=== PATIENT | female | born 1990 | race Caucasian/White ===

== ENCOUNTER 2017-09-01 07:11 | Day surgery (SDC) | payer MEDICAID ==
[~2017-09-01 07:11] MED LIST: Lactated Ringers 1,000 ML IV SCH; Lidocaine 1%/Sod Bicarbonate in NS 8.4% 1 ML Syringe IV PRN; Sodium Chloride 0.9% 10 ML Syringe FLUSH PRN
[2017-09-01] MEDS ORDERED: Lidocaine 1% with EPINEPHrine 1:100,000 20 ML MDV ONE (07:16)
[2017-09-01] MEDS ORDERED: Sodium Chloride 0.9% 50 ML SDV ONE (07:16)
[2017-09-01] MEDS ORDERED: fentaNYL 100 MCG/2 ML SDV ONE (07:19)
[2017-09-01] MEDS ORDERED: Lidocaine 1% 4 ML ONE (07:19)
[2017-09-01] MEDS ORDERED: Propofol 200 MG/20 ML SDV ONE (07:19)
[2017-09-01] MEDS ORDERED: Ondansetron 4 MG/2 ML SDV ONE (07:19)
[2017-09-01] MEDS ORDERED: Dexamethasone 4 MG/ML 5 ML MDV ONE (07:19)
[2017-09-01] MEDS ORDERED: Ketorolac 30 MG/ML SDV ONE (07:19)
[2017-09-01] MEDS ORDERED: ceFAZolin 1 GM Vial ONE (07:19)
[2017-09-01] MEDS ORDERED: Lactated Ringers 1,000 ML ONE (07:19)
[2017-09-01] MEDS ORDERED: Midazolam 1 MG/ML 2 ML SDV ONE (07:20)
--- NOTE | 2017-09-01 07:39 | PCM.PREANE ---
Preanesthetic Assessment - Anesthesia/Transfusion/Family Hx Anesthesia History: Prior Anesthesia Without Reaction Family History of Anesthesia Reaction: No Transfusion History: No Prior Transfusion(s) Intubation History: Unknown - Review of Systems General: No Symptoms Pulmonary: No Symptoms (quit smoking 5 yrs ago.), Cough Cardiovascular: No Symptoms (history of irregular heart beat that has resolved.) Gastrointestinal: No Symptoms (Pt. c/o nervous stomach/diarrhea) Neurological: No Symptoms Other: Reports: Anxiety - Physical Assessment NPO Status Date: 08/31/17 NPO Status Time: 21:30 Pulse: 61 O2 Sat by Pulse Oximetry: 99 Respiratory Rate: 20 Blood Pressure: 111/75 Temperature: 36.7 C Height: 1.68 m Weight: 66.678 kg ASA Class: 2 Mental Status: Alert & Oriented x3 Airway Class: Mallampati = 2 Dentition: Reports: Normal Dentition, Caries Thyro-Mental Finger Breadths: 3 Mouth Opening Finger Breadths: 3 ROM/Head Extension: Full Lungs: Clear to Auscultation, Normal Respiratory Effort Cardiovascular: Regular Rate, Regular Rhythm, No Murmurs - Lab Values: Laboratory Last Values WBC 4.94 K/mm3 (3.98-10.04) 08/31/17 12:50 RBC 5.15 M/mm3 (3.98-5.22) 08/31/17 12:50 Hgb 14.8 gm/L (11.2-15.7) 08/31/17 12:50 Hct 44.6 % (34.1-44.9) 08/31/17 12:50 MCV 86.6 fl (79.4-94.8) 08/31/17 12:50 MCH 28.7 pg (25.6-32.2) 08/31/17 12:50 MCHC 33.2 g/dl (32.2-35.5) 08/31/17 12:50 RDW Std Deviation 40.8 fL (36.4-46.3) 08/31/17 12:50 Plt Count 241 K/mm3 (182-369) 08/31/17 12:50 MPV 10.5 fl (9.4-12.3) 08/31/17 12:50 Neut % (Auto) 58.9 % (34.0-71.1) 08/31/17 12:50 Lymph % (Auto) 29.6 % (19.3-51.7) 08/31/17 12:50 [place] % (Auto) 8.9 % (4.7-12.5) 08/31/17 12:50 Eos % (Auto) 2.4 (0.7-5.8) 08/31/17 12:50 Baso % (Auto) 0.2 % (0.1-1.2) 08/31/17 12:50 Neut # (Auto) 2.91 K/mm3 (1.56-6.13) 08/31/17 12:50 Lymph # (Auto) 1.46 K/mm3 (1.18-3.74) 08/31/17 12:50 [place] # (Auto) 0.44 K/mm3 (0.24-0.36) H 08/31/17 12:50 Eos # (Auto) 0.12 K/mm3 (0.04-0.36) 08/31/17 12:50 Baso # (Auto) 0.01 K/mm3 (0.01-0.08) 08/31/17 12:50 Urine HCG, Qual Negative (NEGATIVE) 08/31/17 12:50 Above labs reviewed and noted. - Allergies Allergies/Adverse Reactions: Allergies Allergy/AdvReac Type Severity Reaction Status Date / Time clindamycin Allergy Hives Verified 08/31/17 16:12 - Anesthesia Plan Pre-Op Medication Ordered: None - Acknowledgements Anesthesia Type Planned: General Anesthesia Pt an Appropriate Candidate for the Planned Anesthesia: Yes Alternatives and Risks of Anesthesia Discussed w Pt/Guardian: Yes Pt/Guardian Understands and Agrees with Anesthesia Plan: Yes PreAnesthesia Questionnaire - Past Health History Medical/Surgical History: Denies Medical/Surgical History HEENT History: Reports: Impaired Vision Cardiovascular History: Reports: Other (See Below) Other Cardiovascular History: irregular heart beat Respiratory History: Reports: None Gastrointestinal History: Reports: Chronic Diarrhea Other OB/BYN History: CINIII, HSIL Musculoskeletal History: Reports: Other (See Below) Other Musculoskeletal History: muscle twitching Neurological History: Reports: None Psychiatric History: Reports: None Endocrine/Metabolic History: Reports: None Hematologic History: Reports: None Immunologic History: Reports: None Oncologic (Cancer) History: Reports: None Dermatologic History: Reports: Other (See Below) Other Dermatologic History: facial surgery - Past Surgical History Head Surgeries/Procedures: Reports: None Other HEENT Surgeries/Procedures: face surgery Cardiovascular Surgical History: Reports: None Respiratory Surgical History: Reports: None GI Surgical History: Reports: None Female Surgical History: Reports: Cervical Conization, LEEP Endocrine Surgical History: Reports: None Neurological Surgical History: Reports: None Oncologic Surgical History: Reports: None - SUBSTANCE USE Smoking Status *Q: Current Some Day Smoker Tobacco Use Within Last Twelve Months: Snuff/Dip Second Hand Smoke Exposure: No Days Per Week of Alcohol Use: 1 Number of Drinks Per Day: 1 Total Drinks Per Week: 1 Recreational Drug Use History: No - HOME MEDS Home Medications: Home Meds Norethindrone [Jolivette] 1 tab PO DAILY 12/03/15 [History] Ibuprofen 600 mg PO Q4HR #30 tablet 12/04/15 [Rx] Dicyclomine HCl [Bentyl] 20 mg PO DAILY PRN 08/31/17 [History] - CURRENT (IN HOUSE) MEDS Current Meds: Current Medications Lactated Ringer's (Ringers, Lactated) 1,000 mls @ 125 mls/hr IV ASDIRECTED YOVANY Stop: 09/01/17 18:00 Lidocaine/Sodium Bicarbonate (Buffered Lidocaine 1% In Ns 8.4%) 0.25 ml IV ONETIME PRN PRN Reason: Prior to IV Start Stop: 09/01/17 18:00 Sodium Chloride (Saline Flush) 10 ml FLUSH ASDIRECTED PRN PRN Reason: Keep Vein Open Stop: 09/01/17 18:00 Discontinued Medications Cefazolin Sodium (Ancef) Confirm Administered Dose 2 gm .ROUTE .STK-MED ONE Stop: 09/01/17 07:20 Dexamethasone (Dexamethasone) Confirm Administered Dose 20 mg .ROUTE .STK-MED ONE Stop: 09/01/17 07:20 Fentanyl (Sublimaze) Confirm Administered Dose 100 mcg .ROUTE .STK-MED ONE Stop: 09/01/17 07:20 Lidocaine HCl (Xylocaine-Mpf 1%) Confirm Administered Dose 4 mls @ as directed .ROUTE .STK-MED ONE Stop: 09/01/17 07:20 Lactated Ringer's (Ringers, Lactated) Confirm Administered Dose 1,000 mls @ as directed .ROUTE .STK-MED ONE Stop: 09/01/17 07:20 Ketorolac Tromethamine (Toradol) Confirm Administered Dose 30 mg .ROUTE .STK- MED ONE Stop: 09/01/17 07:20 Lidocaine/Epinephrine (Xylocaine 1% With Epinephrine 1:100,000) Confirm Administered Dose 20 ml .ROUTE .STK-MED ONE Stop: 09/01/17 07:17 Midazolam HCl (Versed 1 Mg/Ml) Confirm Administered Dose 2 mg .ROUTE .STK-MED ONE Stop: 09/01/17 07:21 Ondansetron HCl (Zofran) Confirm Administered Dose 4 mg .ROUTE .STK-MED ONE Stop: 09/01/17 07:20 Propofol (Diprivan 20 Ml) Confirm Administered Dose 200 mg .ROUTE .STK-MED ONE Stop: 09/01/17 07:20 Sodium Chloride (Normal Saline) Confirm Administered Dose 50 ml .ROUTE .STK-MED ONE Stop: 09/01/17 07:17
[2017-09-01] MEDS ORDERED: Metoclopramide 10 MG/2 ML SDV IV PRN (08:10)
[2017-09-01] MEDS ORDERED: Ondansetron 4 MG/2 ML SDV IVPUSH PRN ×2 (08:10→08:45)
[2017-09-01] MEDS ORDERED: fentaNYL 100 MCG/2 ML SDV IVPUSH PRN (08:10)
[2017-09-01] MEDS ORDERED: Midazolam 1 MG/ML 2 ML SDV IVPUSH PRN (08:10)
--- NOTE | 2017-09-01 08:43 | PCM.POSTAN ---
POST ANESTHESIA ASSESSMENT - MENTAL STATUS Mental Status: Alert - VITAL SIGNS Pulse Rate: 64 SaO2: 100 Resp Rate: 16 Blood Pressure: 114/68 Temperature: 36.8 C - RESPIRATORY Respiratory Status: Respiratory Rate WNL, Airway Patent, O2 Saturation Stable, Supplemental Oxygen - CARDIOVASCULAR CV Status: Pulse Rate WNL, Blood Pressure Stable - GASTROINTESTINAL GI Status: No Symptoms - POST OP HYDRATION Hydration Status: Adequate & Stable
--- NOTE | 2017-09-01 09:33 | PCM48HPAN ---
Post Anesthesia Note - EVALUATION WITHIN 48HRS OF ANESTHETIC Vital Signs in Normal Range: Yes Patient Participated in Evaluation: Yes Respiratory Function Stable: Yes Airway Patent: Yes Cardiovascular Function Stable: Yes Hydration Status Stable: Yes Pain Control Satisfactory: Yes Nausea and Vomiting Control Satisfactory: Yes Mental Status Recovered: Yes
--- NOTE | 2017-09-01 09:52 | PCM.OPNOTE ---
- General Post-Op/Procedure Note Date of Surgery/Procedure: 09/01/17 Operative Procedure(s): Cold knife cone biopsy of the cervix Findings: Mild white epithelium at approximately 6 to 7 o'clock position. Patient has scarring secondary to previous LEEP. SCJ could not adequately visualized Pre Op Diagnosis: JUAN A-3, unsatisfactory colposcopy with squamocolumnar junction is not visualized adequately. Post-Op Diagnosis: Same Anesthesia Technique: General LMA Other Anesthesia Type: Lidocaine quarter percent with [id number] mL total Primary Surgeon: Eugenio Campbell Secondary Surgeon: Daxa Estrella Anesthesia Provider: Aneta Mendes Reason Dispatcher Chief Oil Was Necessary: Retraction, patient safety Role of Dispatcher Chief Oil: Retraction Fluid Replacement, Intraop: 900 EBL in mLs: 5 Complications: None Condition: Good Free Text/Narrative:: Intake & Output 08/31/17 09/01/17 09/01/17 22:59 06:59 14:59 Intake Total 250 Balance 250 Surgery duration: 29 minutes Procedure: The patient is taken to the operating room and placed in supine position on the operating table. She was administered Ancef 2 g IV preop for infection prophylaxis and had sequential compression stockings in place for DVT prophylaxis. General LMA anesthesia was administered. After anesthesia patient was placed in a dorsal lithotomy position and prepped externally for this procedure. Internal and external prep was done with Lugol solution. A weighted speculum was placed in the vagina. The cervix was visualized and a stay suture was placed at the 3:00 and 9 o'clock position using #1 Vicryl suture. Lugol's solution was applied and the ectocervix showed some minimal white epithelium at the 6:00 to 7 o'clock position.. The cervix was infiltrated with lidocaine quarter percent with epinephrine-10 mL total. Cold knife cone biopsy was then performed. The specimen was tagged at 12 o'clock position with a piece of suture. Endocervical curettage was done above the cone site and sent as specimen #2. The base the cone was then cauterized. Hemostasis was confirmed at the end of procedure. The stay suture tails were cut and the speculum was removed. Sponge instrument needle counts are correct at the end of the procedure. She was returned to supine position and awakened from general anesthesia. She tolerated the procedure well left the operating room in good condition.
[2017-09-01] MEDS ORDERED: Ketorolac 30 MG/ML SDV IVPUSH ONE (09:55)
[2017-09-01 10:20] VITALS: BP 115/71
== END 2017-09-01 10:25 | disposition home or self-care (01) ==
LOC: JD.SDS 07:11
PROVIDERS: ATTEND Obstetrics & Gynecology
DX: D06.0 Carcinoma in situ of endocervix (principal); N72 Inflammatory disease of cervix uteri; F41.9 Anxiety disorder, unspecified; I49.9 Cardiac arrhythmia, unspecified; F17.210 Nicotine dependence, cigarettes, uncomplicated; Z88.1 Allergy status to other antibiotic agents; Z79.899 Other long term (current) drug therapy; Z79.3 Long term (current) use of hormonal contraceptives
CPT/HCPCS: 36415; 57520; 81025; 85025; J0690; J1100; J1885; J2250; J2405; J3010; J7120; 00940; J2704

== ENCOUNTER 2018-07-14 14:23 | Emergency (ER) | payer MEDICAID, OTHER ==
[2018-07-14 14:34] VITALS: BP 125/81
--- NOTE | 2018-07-14 14:42 | EDM.PDOC ---
ED HPI GENERAL MEDICAL PROBLEM - General Chief Complaint: Lower Extremity Injury/Pain Stated Complaint: R ANKLE INJURY Time Seen by Provider: 07/14/18 14:32 Source of Information: Reports: Patient History Limitations: Reports: No Limitations - History of Present Illness INITIAL COMMENTS - FREE TEXT/NARRATIVE: 28-year-old female with a chief complaint of right ankle pain. She was trampled by a calf. Denies additional injury. Injury occurred about an hour ago. She complains of pain and swelling to the right ankle. Not able to bear weight due to pain. No numbness. No tingling. No weakness. No knee pain. No foot pain. Right Ankle Pain Score (Numeric/FACES): 8 - Related Data Allergies Allergy/AdvReac Type Severity Reaction Status Date / Time clindamycin Allergy Hives Verified 07/14/18 14:31 Home Meds: Home Meds Norethindrone [Jolivette] 1 tab PO DAILY 12/03/15 [History] Ibuprofen 800 mg PO TID PRN #40 tablet 07/14/18 [Rx] Past Medical History - Past Health History Medical/Surgical History: Denies Medical/Surgical History HEENT History: Reports: Impaired Vision Cardiovascular History: Reports: Other (See Below) Other Cardiovascular History: irregular heart beat Respiratory History: Reports: None Gastrointestinal History: Reports: Chronic Diarrhea Other CONTRACT MANAGEMENT SPECIALIST History: CINIII, HSIL Musculoskeletal History: Reports: Other (See Below) Other Musculoskeletal History: muscle twitching Neurological History: Reports: None Psychiatric History: Reports: None Endocrine/Metabolic History: Reports: None Hematologic History: Reports: None Immunologic History: Reports: None Oncologic (Cancer) History: Reports: None Dermatologic History: Reports: Other (See Below) Other Dermatologic History: facial surgery - Past Surgical History Head Surgeries/Procedures: Reports: None Other HEENT Surgeries/Procedures: face surgery Cardiovascular Surgical History: Reports: None Respiratory Surgical History: Reports: None GI Surgical History: Reports: None Female Surgical History: Reports: Cervical Conization, LEEP Endocrine Surgical History: Reports: None Neurological Surgical History: Reports: None Oncologic Surgical History: Reports: None Social & Family History - Tobacco Use Smoking Status *Q: Never Smoker - Caffeine Use Caffeine Use: Reports: Coffee, Soda - Recreational Drug Use Recreational Drug Use: No Review of Systems - Review of Systems Review Of Systems: See Below Constitutional: Reports: No Symptoms Respiratory: Reports: No Symptoms Cardiovascular: Reports: No Symptoms GI/Abdominal: Reports: No Symptoms Musculoskeletal: Reports: Leg Pain Skin: Denies: Wound ED EXAM, GENERAL - Physical Exam Exam: See Below Exam Limited By: No Limitations General Appearance: Alert, WD/WN, No Apparent Distress Eye Exam: Bilateral Eye: Normal Inspection Ears: Normal External Exam Nose: Normal Inspection Throat/Mouth: Normal Inspection, Normal Voice, No Airway Compromise Head: Atraumatic, Normocephalic Neck: Normal Inspection, Supple Respiratory/Chest: No Respiratory Distress Cardiovascular: Normal Peripheral Pulses Back Exam: Normal Inspection, CVA Tenderness (R) Extremities: Other (Right lower extremity: No knee tenderness or swelling. No tibia or fibular head TTP. Significant swelling to the right lateral malleolus is present in the area is diffusely tender. No medial malleolus tenderness. No foot tenderness or bruising. Distal motor/sensation/perfusion intact. 2+ DP pulse.) Neurological: Alert, Oriented, Normal Cognition, No Motor/Sensory Deficits Psychiatric: Normal Affect, Normal Mood Skin Exam: Warm, Dry, Intact, Normal Color, No Rash Course - Vital Signs Last Recorded V/S: Last Vital Signs Temp 36.8 C 07/14/18 14:31 Pulse 75 07/14/18 14:31 Resp 16 07/14/18 14:31 BP 125/81 07/14/18 14:31 Pulse Ox 100 07/14/18 14:31 - Orders/Labs/Meds Orders: Active Orders 24 hr Category Date Time Status Splinting [RC] ASDIRECTED Care 07/14/18 15:36 Ordered Ankle Min 3V Rt [CR] Stat Exams 07/14/18 14:42 Taken Tibia Fibula Rt [CR] Stat Exams 07/14/18 14:42 Taken DME for Discharge [COMM] Stat Oth 07/14/18 15:37 Ordered Meds: Medications Discontinued Medications Generic Name Dose Route Start Last Admin Trade Name Iain PRN Reason Stop Dose Admin Hydromorphone HCl 1 mg 07/14/18 14:43 07/14/18 14:57 Dilaudid IM 07/14/18 14:44 1 mg ONETIME ONE Administration - Re-Assessments/Exams Free Text/Narrative Re-Assessment/Exam: 07/14/18 15:42 XR R ankle and R tib/fib shows no fracture. She has a significant sprain. Will treat with air splint, crutches, NSAID's, discussed need for f/u. Departure - Departure Time of Disposition: 15:40 Disposition: Home, Self-Care 01 Clinical Impression: Ankle sprain Qualifiers: Encounter type: initial encounter Involved ligament of ankle: unspecified ligament Laterality: right Qualified Code(s): S93.401A - Sprain of unspecified ligament of right ankle, initial encounter - Discharge Information Prescriptions: Ibuprofen 800 mg PO TID PRN #40 tablet PRN Reason: Pain Referrals: Ilene Dorman PA-C [Primary Care Provider] - Forms: ED Department Discharge Additional Instructions: 1. Keep ankle elevated when possible. Ice on and off today and tomorrow. 2. Wear splint for comfort. Use crutches until you an walk without pain or limping. 3. Ibuprofen for pain. OK to take acetaminophen (tylenol) in addition to ibuprofen according to bottle directions. 4. Follow up with your primary care provider next week for further care. 5. Return to the ED as needed for severe pain or other concerning symptoms. - My Orders Last 24 Hours: My Active Orders 07/14/18 14:42 Ankle Min 3V Rt [CR] Stat Tibia Fibula Rt [CR] Stat 07/14/18 15:36 Splinting [RC] ASDIRECTED 07/14/18 15:37 DME for Discharge [COMM] Stat - Assessment/Plan Last 24 Hours: My Active Orders 07/14/18 14:42 Ankle Min 3V Rt [CR] Stat Tibia Fibula Rt [CR] Stat 07/14/18 15:36 Splinting [RC] ASDIRECTED 07/14/18 15:37 DME for Discharge [COMM] Stat
[2018-07-14] MEDS ORDERED: HYDROmorphone 1 MG/ML Syringe IM ONE (14:43)
[2018-07-14] MEDS ORDERED: Ibuprofen 800 MG Tab PO ONE (15:38)
--- NOTE | 2018-07-15 17:03 | CR ---
Right ankle: Four views of the right ankle were obtained. Comparison: Prior right tibia and fibula exam of 07/14/18. Soft tissue swelling is identified. Ankle mortise is symmetric. No fracture, dislocation or other bony abnormality is seen. Impression: 1. Soft tissue swelling. No bony abnormality is identified on right ankle exam. Diagnostic code #2
--- NOTE | 2018-07-15 17:03 | CR ---
Right tibia and fibula: Two views of the right tibia and fibula were obtained. Comparison: No prior right tibia or fibula study. Soft tissue swelling noted around the ankle. No fracture or other bony abnormality is seen. Impression: 1. Soft tissue swelling. No bony abnormality is identified on right tibia and fibula exam. Diagnostic code #2
== END 2018-07-14 16:10 | disposition home or self-care (01) ==
LOC: JD.ED 14:23
DX: S93.401A Sprain of unspecified ligament of right ankle, initial encounter (principal); Z79.899 Other long term (current) drug therapy; Z88.1 Allergy status to other antibiotic agents; X50.9XXA Other and unspecified overexertion or strenuous movements or postures, initial encounter
CPT/HCPCS: 73590; 73610; 96372; 99283; J1170; A9270-GY